=== PATIENT | female | born 1945 | race Caucasian/White ===

== ENCOUNTER 2016-10-08 19:32 | Emergency (ER) | payer MEDICARE, BC ==
[2016-10-08 20:11] VITALS: BP 160/88
--- NOTE | 2016-10-08 20:17 | EDM.PDOC ---
ED HPI Trauma - General Stated Complaint: BROKEN LEFT WRIST?? Time Seen by Provider: 10/08/16 20:17 Source: Reports: Patient, Old records, RN notes reviewed History Limitations: Reports: No limitations - History of Present Illness INITIAL COMMENTS - FREE TEXT/NARRATIVE: brought her Chief complaint Left wrist pain from fall HPI 71-year-old right-handed female, retired, was walking down her yard down some wooden steps while using her phone to take a video, tripped and fell on the wooden stairs onto her outstretched left wrist. Fell on the wooden steps Immediate pain and decreased movement of the left wrist. No numbness or paresthesias No other injuries She is on tramadol, recent shingles, this has given her some left leg numbness which may of contributed to her fall Allergies/ADRs: Allergies Penicillins Allergy (Verified 10/08/16 20:29) Respiratory Distress Home Medications: Ambulatory Orders Diltiazem HCl [Diltiazem 24Hr Cd] 360 mg PO DAILY 10/08/16 [Confirmed 10/08/16] Gabapentin [Gabapentin] 600 mg PO TID 10/08/16 [Confirmed 10/08/16] Hydrocodone/Acetaminophen [Hydrocodon-Acetaminophen 5-325] 1 - 2 each PO Q4H PRN #10 tablet 10/08/16 Warfarin Sliding Scale [Coumadin Sliding Scale] 7 mg PO DAILY 10/08/16 [ Confirmed 10/08/16] atorvaSTATin Calcium [Atorvastatin Calcium] 10 mg PO DAILY 10/08/16 [Confirmed 10/08/16] metFORMIN [Glucophage] 500 mg PO DAILY 10/08/16 [Confirmed 10/08/16] traMADol [Ultram] 25 mg PO BEDTIME 10/08/16 [Confirmed 10/08/16] Review of Systems - Review of Systems Review Of Systems: ROS reveals no pertinent complaints other than HPI. GI/Abdominal: Reports: No symptoms Musculoskeletal: Reports: joint pain (Left wrist), joint swelling (Left wrist) Skin: Reports: no symptoms Neurological: Reports: Difficulty Walking (Numbness left leg recent shingles) Psychiatric: Reports: no symptoms Trauma Exam - Physical Exam Exam: See Below Exam Limited By: No limitations General Appearance: Reports: alert, mild distress, other (Left wrist is limp at her side, elevated systolic blood pressure otherwise vital signs normal, No difficulty speaking or breathing) Head: Reports: atraumatic, normocephalic Throat/Mouth: Reports: Normal voice Neck: Reports: non-tender Respiratory Exam: Reports: no respiratory distress, no accessory muscle use Cardiovascular: Reports: normal peripheral pulses, regular rate, rhythm Extremities: Reports: pain with movement (Left wrist with decreased range of motion especially supination), other (Swelling and tenderness left wrist) Neurologic: Reports: no motor/sensory deficits, alert, normal mood/affect Skin: Reports: Normal color, Warm/dry (The laceration) - Shannock Coma Score Best Eye Response (Molina): (4) open spontaneously Best Verbal Response (Molina): (5) oriented Best Motor Response (Molina): (6) obeys commands Molina Total: 15 ED TRAUMA EXTREMITY PROCEDURES - Splinting Left Upper Extremity Splint site: Left forearm Pre-procedure NV status: normal Post-procedure NV status: normal Splint material: other (Ortho-Glass) Splint design: volar Applied & form fitted by: provider Provider post-splint application NV check: NV status normal Complications: No Complication Description: Darrin wrap used to secure Progress/Comments: Left arm sling Course - Vital Signs Last Recorded V/S: Last Vital Signs Temp 36.1 C 10/08/16 20:27 Pulse 93 10/08/16 20:27 Resp 16 10/08/16 20:27 BP 160/88 H 10/08/16 20:27 Pulse Ox 97 10/08/16 20:10 - Orders/Labs/Meds Orders: Active Orders 24 hr Category Date Time Status Orthopedic Treatments [RC] ASDIRECTED Care 10/08/16 21:29 Ordered Wrist Comp Min 3V Lt [CR] Stat Exams 10/08/16 20:21 Taken - Re-Assessments/Exams Free Text/Narrative Re-Assessment/Exam: 10/08/16 20:25 71-year-old female with injury to left wrist from fall on outstretched arm There is swelling tenderness and decreased range of motion a fracture is suspected Declined analgesics initially X-ray left wrist Fracture ulnar styloid Comminuted fracture distal left radius involving the joint surface as well with some impaction and foreshortening, will need orthopedic assessment reproduction and possible surgery Left arm splint short forearm Left arm sling See discharge instructions 10/08/16 21:35 10/08/16 21:36 Departure - Departure Time of Disposition: 21:27 Disposition: Home, Self-Care 01 Condition: good Clinical Impression: Closed Colles' fracture Qualifiers: Encounter type: initial encounter Laterality: left Qualified Code(s): S52.532A - Colles' fracture of left radius, initial encounter for closed fracture Prescriptions: Hydrocodone/Acetaminophen [Hydrocodon-Acetaminophen 5-325] 1 - 2 each PO Q4H PRN #10 tablet PRN Reason: Moderate to severe pain Instructions: Wrist Fracture Treated With Immobilization, [id number] Referrals: Josemanuel De Santiago MD [Primary Care Provider] - Forms: ED Department Discharge Additional Instructions: Please contact orthopedic clinic for followup appointment this week Phone number [phone] Keep your arm elevated to decrease swelling You may take acetaminophen or ibuprofen for pain or the prescription pain medication if needed - My Orders Last 24 Hours: My Active Orders 10/08/16 20:21 Wrist Comp Min 3V Lt [CR] Stat 10/08/16 21:29 Orthopedic Treatments [RC] ASDIRECTED - Assessment/Plan Last 24 Hours: My Active Orders 10/08/16 20:21 Wrist Comp Min 3V Lt [CR] Stat 10/08/16 21:29 Orthopedic Treatments [RC] ASDIRECTED
--- NOTE | 2016-10-09 09:06 | CR ---
Wrist Comp Min 3V Lt HISTORY: fall, pain, deformity FINDINGS: There is a comminuted and impacted fracture distal left radius. Displaced fragments are se en. Fracture line extends to the mid articular surface. There is mild step-off at the articular surf kevin. Mild dorsal angulation is noted. Displaced and rotated fracture styloid process of the ulna is also noted. Carpal bone alignment is satisfactory. IMPRESSION: Comminuted and impacted fracture distal radius and ulna with displacement and angulation . Displaced and rotated fracture styloid process of the ulna.
== END 2016-10-08 21:43 | disposition home or self-care (01) ==
LOC: JP.ED 19:32
DX: S52.532A Colles' fracture of left radius, initial encounter for closed fracture (principal); W10.9XXA Fall (on) (from) unspecified stairs and steps, initial encounter; Z88.0 Allergy status to penicillin; Z79.01 Long term (current) use of anticoagulants; Z79.899 Other long term (current) drug therapy
CPT/HCPCS: 29125; 73110-26-LT; 73110-LT; 99283-25; 99284-25

== ENCOUNTER 2021-04-16 10:45 | Emergency (ER) | payer MEDICARE, BC ==
[2021-04-16 11:02] VITALS: BP 141/74; PULSE 82
[2021-04-16] MEDS ORDERED: Acetaminophen/oxyCODONE 325-5 MG Tab PO STA (11:29)
--- NOTE | 2021-04-16 11:35 | EDM.PDOC ---
ED HPI GENERAL MEDICAL PROBLEM - General Chief Complaint: Back Pain or Injury Stated Complaint: FELL/HURT BACK Time Seen by Provider: 04/16/21 11:20 Source of Information: Reports: Patient, Old Records, RN History Limitations: Reports: No Limitations - History of Present Illness INITIAL COMMENTS - FREE TEXT/NARRATIVE: 76 yo female walks with a walker. This early AM her walker got caught up in her husbands pillow sham and she fell striking her L flank area on a table. Has warfarin therapy for her chronic afib. Her INR on Thursday was 1.9 and no change in her dose was made at that time. She denies gross hematuria since her fall. No SOB. 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) (none) Left Lower Back Pain Score (Numeric/FACES): 4 - Related Data Allergies Allergy/AdvReac Type Severity Reaction Status Date / Time Penicillins Allergy Respiratory Verified 10/08/16 20:29 Distress Home Meds: Home Meds Gabapentin 600 mg PO TID 10/08/16 [History] Warfarin Sliding Scale [Coumadin Sliding Scale] 7 mg PO DAILY 10/08/16 [History] atorvaSTATin Calcium [Atorvastatin Calcium] 10 mg PO DAILY 10/08/16 [History] dilTIAZem HCl [Diltiazem 24Hr Cd] 360 mg PO DAILY 10/08/16 [History] metFORMIN [Glucophage] 500 mg PO DAILY 10/08/16 [History] Past Medical History HEENT History: Reports: Impaired Vision Cardiovascular History: Reports: Afib, High Cholesterol 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: Endocrine/Metabolic History: Reports: Diabetes, Type II Hematologic History: Reports: Anesthesia Reaction - Infectious Disease History Infectious Disease History: Reports: Chicken Pox, Shingles - Past Surgical History Musculoskeletal Surgical History: Reports: Knee Replacement Social & Family History - Tobacco Use Tobacco Use Status *Q: Never Tobacco User - Caffeine Use Caffeine Use: Reports: Coffee - Recreational Drug Use Recreational Drug Use: No ED ROS GENERAL - Review of Systems Review Of Systems: See Below Constitutional: Reports: No Symptoms HEENT: Reports: No Symptoms Respiratory: Reports: No Symptoms Cardiovascular: Reports: No Symptoms GI/Abdominal: Reports: No Symptoms : Reports: No Symptoms Musculoskeletal: Reports: Back Pain Skin: Reports: Bruising Neurological: Reports: No Symptoms ED EXAM,LOWER BACK PAIN/INJURY - Physical Exam Exam: See Below Exam Limited By: No Limitations General Appearance: Alert, WD/WN, No Apparent Distress Eye Exam: Bilateral Eye: Normal Inspection Ears: Normal External Exam, Normal Canal, Hearing Grossly Normal Nose: Normal Inspection, No Blood Throat/Mouth: Normal Lips, Normal Voice Head: Atraumatic, Normocephalic Neck: Normal Inspection, Non-Tender Respiratory/Chest: No Respiratory Distress, Lungs Clear, Normal Breath Sounds, No Accessory Muscle Use Cardiovascular: Regular Rate, Rhythm, No Edema Back Exam: Normal Inspection Extremities: Normal Inspection Neurological: Alert, Normal Mood/Affect, CN II-XII Intact, No Motor/Sensory Deficits, Oriented x 3 Psychiatric: Normal Affect, Normal Mood Skin Exam: Warm, Dry, Intact, No Rash, Ecchymosis (L flank) Course - Vital Signs Last Recorded V/S: Last Vital Signs Temp 36.1 C 04/16/21 11:01 Pulse 82 04/16/21 11:01 Resp 16 04/16/21 11:01 BP 141/74 H 04/16/21 11:01 Pulse Ox 96 04/16/21 11:01 - Orders/Labs/Meds Orders: Active Orders 24 hr Category Date Time Status Ribs 2V wo Chest Lt [CR] Stat Exams 04/16/21 11:30 Taken UA W/MICROSCOPIC [URIN] Stat Lab 04/16/21 11:56 Ordered Meds: Medications Discontinued Medications Generic Name Dose Route Start Last Admin Trade Name Dann PRN Reason Stop Dose Admin Oxycodone/Acetaminophen 1 tab 04/16/21 11:29 04/16/21 11:55 Acetaminophen/Oxycodone 325-5 Mg Tab PO 04/16/21 11:30 1 tab ONETIME STA Administration - Radiology Interpretation Free Text/Narrative:: Rib X-rays-no fx's seen Departure - Departure Time of Disposition: 13:00 Disposition: Home, Self-Care 01 Condition: Fair Clinical Impression: Rib pain on left side - Discharge Information *PRESCRIPTION DRUG MONITORING PROGRAM REVIEWED*: Yes *COPY OF PRESCRIPTION DRUG MONITORING REPORT IN PATIENT SO: Yes Instructions: Nonspecific Chest Pain, Adult, [id number] Referrals: Ventura Powell MD [Primary Care Provider] - Forms: ED Department Discharge Additional Instructions: Take Percocet 1 every 4-6 hrs as needed for pain relief. F/U with your provider in the next week for recheck. Ample fluids/fiber to prevent constipation. Sepsis Event Note (ED) - Evaluation Sepsis Screening Result: No Definite Risk - Focused Exam Vital Signs: Vital Signs Temp Pulse Resp BP Pulse Ox 04/16/21 11:01 36.1 C 82 16 141/74 H 96 - My Orders Last 24 Hours: My Active Orders 04/16/21 11:30 Ribs 2V wo Chest Lt [CR] Stat 04/16/21 11:56 UA W/MICROSCOPIC [URIN] Stat - Assessment/Plan Last 24 Hours: My Active Orders 04/16/21 11:30 Ribs 2V wo Chest Lt [CR] Stat 04/16/21 11:56 UA W/MICROSCOPIC [URIN] Stat
--- NOTE | 2021-04-16 12:52 | CR ---
Ribs 2V wo Chest Lt CLINICAL HISTORY: Fall, left flank pain FINDINGS: The bones are osteopenic. The lower ribs are not well seen below the dome of the hemidiaphragm. No obvious fracture is seen. There is some streaky density in the left lung base which is likely some streaky atelectasis. There is less than optimal inspiration There is no focal pleural thickening or obvious effusion. IMPRESSION: Limited lower left rib study due to osteoporosis No definite fracture seen. No pneumothorax or pleural effusion
== END 2021-04-16 13:12 | disposition home or self-care (01) ==
LOC: JP.ED 10:45
DX: R07.81 Pleurodynia (principal); I48.91 Unspecified atrial fibrillation; E78.00 Pure hypercholesterolemia, unspecified; E11.9 Type 2 diabetes mellitus without complications; Z88.0 Allergy status to penicillin; Z79.01 Long term (current) use of anticoagulants; Z79.84 Long term (current) use of oral hypoglycemic drugs; Z79.899 Other long term (current) drug therapy
CPT/HCPCS: 71100; 99283; A9270

== ENCOUNTER 2023-04-10 18:21 | Emergency (ER) | payer MEDICARE, BC ==
[2023-04-10 18:35] LABS: BASOPHILS ABSOLUTE AUTO 0.03 K/uL (0.00-0.10); BASOPHILS PERCENT AUTO 0.2 % (0.1-1.3); EOSINOPHILS ABSOLUTE AUTO 0.04 K/uL (0.00-0.40); EOSINOPHILS PERCENT AUTO 0.3 % (0.0-5.4); HEMATOCRIT 40.8 % (34.3-46.0); HEMOGLOBIN 13.7 g/dL (11.2-15.5); IMMATURE GRAN ABSOLUTE AUTO 0.08 K/uL (0.00-0.23); IMMATURE GRAN PERCENT AUTO 0.6 % (0.0-0.7); LYMPHOCYTES ABSOLUTE AUTO 0.73 K/uL (0.8-3.3); LYMPHOCYTES PERCENT AUTO 5.4 % (11.4-47.7); MEAN CORPUSCULAR HEMOGLOBIN 31.1 pg (31.6-35.5); MEAN CORPUSCULAR HGB CONC 33.6 g/dL (31.6-35.5); MEAN CORPUSCULAR VOLUME 92.7 fL (81.4-99.0); MONOCYTES ABSOLUTE AUTO 0.78 K/uL (0.20-0.90); MONOCYTES PERCENT AUTO 5.7 % (3.3-12.6); NEUTROPHILS ABSOLUTE AUTO 11.93 K/uL (1.0-7.6); NEUTROPHILS PERCENT AUTO 87.8 % (40.0-78.1); PLATELET COUNT,PLT 237 K/uL (130-375); WHITE BLOOD CELL COUNT,WBC 13.6 K/uL (3.2-11.0)
[2023-04-10] MEDS ORDERED: Diphtheria,Pertussis(Acell),Tetanus Vaccine 0.5 ML Syringe IM ONE (18:35)
[2023-04-10 18:55] LABS: INR 1.1; PROTHROMBIN TIME 11.1 sec (9.2-10.6); PTT,PARTIAL THROMBOPLSTIN TIME 26.5 sec (21.8-27.3)
[2023-04-10 18:56] LABS: A/G RATIO 1.3 (1.2-2.2); ALANINE AMINOTRANSFERASE,ALT 17 U/L (12-78); ALKALINE PHOSPHATASE 71 U/L (46-116); ANION GAP 16.1 mmol/L (5.0-14.0); ASPARTATE AMNIOTRANSFERASE,AST 11 U/L (15-37); BILIRUBIN TOTAL 0.5 mg/dL (0.2-1.0); BLOOD UREA NITROGEN,BUN 12 mg/dL (7-18); CARBON DIOXIDE,CO2 25 mmol/L (21-32); CHLORIDE,CL 100 mmol/L (100-108); CREATININE 0.8 mg/dL (0.6-1.0); ESTIMATED GFR 75 mL/min (>60); GLUCOSE RANDOM 111 mg/dL (74-106); POTASSIUM,K 4.1 mmol/L (3.6-5.2); PROTEIN TOTAL,TP 7.1 g/dL (6.4-8.2); SODIUM,NA 137 mmol/L (140-148)
[2023-04-10 19:10] VITALS: BP 172/66; PULSE 79
== END 2023-04-10 21:00 | disposition home or self-care (01) ==
LOC: JP.ED 18:21
DX: S49.92XA Unspecified injury of left shoulder and upper arm, initial encounter (principal); S80.12XA Contusion of left lower leg, initial encounter; S80.11XA Contusion of right lower leg, initial encounter; S80.212A Abrasion, left knee, initial encounter; D68.318 Other hemorrhagic disorder due to intrinsic circulating anticoagulants, antibodies, or inhibitors; Z88.0 Allergy status to penicillin; I48.19 Other persistent atrial fibrillation; E78.00 Pure hypercholesterolemia, unspecified; E11.9 Type 2 diabetes mellitus without complications; Z79.01 Long term (current) use of anticoagulants; W19.XXXA Unspecified fall, initial encounter
CPT/HCPCS: 36415; 71046; 71046-26; 72170; 72170-26; 73030-LT; 80053; 85025; 85610; 85730; 90471; 90715; 99284-25

== ENCOUNTER 2024-02-03 11:14 | Emergency (ER) | payer MEDICARE, BC ==
[2024-02-03] MEDS: Sodium Chloride 0.9% 100 ML IV ONE (14:43)
[2024-02-03] MEDS: Iopamidol 755 Mg/ML 100 ML Bottle IV SCH (14:43)
[2024-02-03] MEDS: Sodium Chloride 0.9% 10 ML Syringe FLUSH PRN (14:43)
[2024-02-03 15:32] VITALS: BP 134/77
[2024-02-03 15:34] VITALS: PULSE 69
== END 2024-02-03 16:59 | disposition home or self-care (01) ==
LOC: JP.ED 11:14
DX: S20.229A Contusion of unspecified back wall of thorax, initial encounter (principal); E78.00 Pure hypercholesterolemia, unspecified; E11.9 Type 2 diabetes mellitus without complications; Z79.899 Other long term (current) drug therapy; Z79.84 Long term (current) use of oral hypoglycemic drugs; Z88.0 Allergy status to penicillin; W19.XXXA Unspecified fall, initial encounter
CPT/HCPCS: 70450; 70498; 72072; 72100; 72125; 76377; 99284; J3490; Q9967

== ENCOUNTER 2024-02-20 11:31 | Emergency (ER) | payer MEDICARE, BC ==
[2024-02-20 12:20] VITALS: BP 122/71; PULSE 68
== END 2024-02-20 13:06 | disposition home or self-care (01) ==
LOC: JP.ED 11:31
DX: S00.03XD Contusion of scalp, subsequent encounter (principal); E78.00 Pure hypercholesterolemia, unspecified; E11.9 Type 2 diabetes mellitus without complications; Z79.899 Other long term (current) drug therapy; Z79.84 Long term (current) use of oral hypoglycemic drugs; Z88.0 Allergy status to penicillin; W19.XXXD Unspecified fall, subsequent encounter
CPT/HCPCS: 99283

== ENCOUNTER 2024-08-26 09:14 | Emergency (ER) | payer MEDICARE, BC ==
[2024-08-26 09:58] VITALS: BP 103/56; PULSE 79
[2024-08-26 10:17] LABS: APPEARANCE,URINE CLOUDY (CLEAR); BILIRUBIN,URINE NEGATIVE (NEGATIVE); COLOR,URINE YELLOW (YELLOW); GLUCOSE,URINE NEGATIVE (NEGATIVE); KETONES,URINE TRACE mg/dL (NEGATIVE); LEUKOCYTE ESTERASE,URINE MODERATE (NEGATIVE); NITRITE,URINE POSITIVE (NEGATIVE); OCCULT BLOOD,URINE NEGATIVE (NEGATIVE); PROTEIN,URINE TRACE mg/dL (NEGATIVE); UROBILINOGEN,URINE 0.2 EU/dL (0.2-1.0)
[2024-08-26 10:20] LABS: BASOPHILS PERCENT AUTO 0.3 % (0.1-1.3); EOSINOPHILS ABSOLUTE AUTO 0.03 K/uL (0.00-0.40); EOSINOPHILS PERCENT AUTO 0.5 % (0.0-5.4); HEMOGLOBIN 13.2 g/dL (11.2-15.5); IMMATURE GRAN ABSOLUTE AUTO 0.03 K/uL (0.00-0.23); IMMATURE GRAN PERCENT AUTO 0.5 % (0.0-0.7); LYMPHOCYTES ABSOLUTE AUTO 0.69 K/uL (0.8-3.3); MEAN CORPUSCULAR HEMOGLOBIN 33.2 pg (31.6-35.5); MEAN CORPUSCULAR HGB CONC 33.8 g/dL (31.6-35.5); MONOCYTES ABSOLUTE AUTO 0.49 K/uL (0.20-0.90); MONOCYTES PERCENT AUTO 7.8 % (3.3-12.6); NEUTROPHILS ABSOLUTE AUTO 5.02 K/uL (1.0-7.6); NEUTROPHILS PERCENT AUTO 79.9 % (40.0-78.1); PLATELET COUNT,PLT 161 K/uL (130-375); RED BLOOD CELL COUNT 3.98 M/uL (3.77-5.24); WHITE BLOOD CELL COUNT,WBC 6.3 K/uL (3.2-11.0)
[2024-08-26 10:21] LABS: BASOPHILS ABSOLUTE AUTO 0.02 K/uL (0.00-0.10)
[2024-08-26 10:25] LABS: BACTERIA,URINE MODERATE; EPITHELIAL CELLS,URINE MODERATE; RBC,URINE 0-5 (0-5); WBC,URINE >100 (0-5)
[2024-08-26 10:26] LABS: AMORPHOUS SEDIMENT,URINE NOT SEEN; MUCUS,URINE NOT SEEN
[2024-08-26 10:45] LABS: A/G RATIO 0.9 (1.2-2.2); ALANINE AMINOTRANSFERASE,ALT 7 U/L (12-78); ALBUMIN 2.9 g/dL (3.4-5.0); ALKALINE PHOSPHATASE 55 U/L (46-116); ASPARTATE AMNIOTRANSFERASE,AST 15 U/L (15-37); BILIRUBIN TOTAL 0.7 mg/dL (0.2-1.0); BLOOD UREA NITROGEN,BUN 13 mg/dL (7-18); CALCIUM 8.9 mg/dL (8.5-10.1); CARBON DIOXIDE,CO2 28 mmol/L (21-32); CHLORIDE,CL 105 mmol/L (100-108); CREATININE 0.8 mg/dL (0.6-1.0); EST CRCL DRUG DOSING (CG) 53.38 mL/min; ESTIMATED GFR 75 mL/min (>60); GLUCOSE RANDOM 115 mg/dL (74-106); MAGNESIUM 1.7 mg/dL (1.8-2.4); POTASSIUM,K 3.8 mmol/L (3.6-5.2); PROTEIN TOTAL,TP 6.2 g/dL (6.4-8.2); SODIUM,NA 139 mmol/L (140-148)
[2024-08-26 10:47] LABS: ANION GAP 9.8 mmol/L (5.0-14.0)
== END 2024-08-26 11:46 | disposition home or self-care (01) ==
LOC: JP.ED 09:14
DX: N30.00 Acute cystitis without hematuria (principal); I10 Essential (primary) hypertension; E78.00 Pure hypercholesterolemia, unspecified; Z88.0 Allergy status to penicillin; Z79.899 Other long term (current) drug therapy; Z88.6 Allergy status to analgesic agent
CPT/HCPCS: 36415; 70450; 80053; 81001; 83735; 84484; 85025; 87086; 87088; 87186; 93005; 99285